=== PATIENT | male | born 1990 | race African-American/Black ===

== ENCOUNTER 2019-10-27 07:32 | Emergency (ER) | payer SELFPAY ==
[~2019-10-27] VITALS: Ht 170.2 cm; Wt 59.0 kg
[2019-10-27 08:17] VITALS: BP 108/58
== END 2019-10-27 08:18 | disposition home or self-care (01) ==
LOC: ER 07:32
DX: S00.452A Superficial foreign body of left ear, initial encounter (principal); W22.8XXA Striking against or struck by other objects, initial encounter; Y93.89 Activity, other specified; Y92.89 Other specified places as the place of occurrence of the external cause; Y99.8 Other external cause status; Z90.49 Acquired absence of other specified parts of digestive tract
CPT/HCPCS: 99284